=== PATIENT | male | born 1965 | race Caucasian/White ===

== ENCOUNTER 2024-12-22 19:49 | Emergency (ER) | payer OTHER ==
[~2024-12-22] VITALS: Ht 172.7 cm; Wt 75.8 kg
[2024-12-22 19:53] VITALS: BP 175/100; PULSE 67; RESP 16; TEMP 98; O2SAT 98
== END 2024-12-22 21:47 | disposition left against medical advice (07) ==
LOC: EDUNIT# 19:49 → ER 19:54
DX: R05.9 Cough, unspecified (principal); R50.9 Fever, unspecified; Z53.21 Procedure and treatment not carried out due to patient leaving prior to being seen by health care provider; Z20.822 Contact with and (suspected) exposure to COVID-19
CPT/HCPCS: 36415; 87502; 87503; 87811